=== PATIENT | female | born 1975 | race Caucasian/White ===

== ENCOUNTER 2022-09-29 07:55 | Outpatient (CLI) | payer OTHER, SELFPAY | END 2022-09-29 07:56 | disposition home or self-care (01) | LOC: NFLDREF 09-30 08:45 | PROVIDERS: PCP Physician Assistant Medical; Referring Provider Physician Assistant Medical; Visit Provider Physician Assistant Medical | DX: N95.9 Unspecified menopausal and perimenopausal disorder (principal); R53.83 Other fatigue; E53.8 Deficiency of other specified B group vitamins; Z13.6 Encounter for screening for cardiovascular disorders; Z13.9 Encounter for screening, unspecified | CPT/HCPCS: 80053; 80061; 82306; 82607; 83001; 84443 ==

== ENCOUNTER 2022-12-21 14:05 | Outpatient (CLI) | payer OTHER, SELFPAY | END 2022-12-21 14:06 | disposition home or self-care (01) | LOC: FRMREF 14:05 | PROVIDERS: PCP Physician Assistant Medical; Visit Provider Dermatology | DX: R21 Rash and other nonspecific skin eruption (principal); D68.59 Other primary thrombophilia; R79.89 Other specified abnormal findings of blood chemistry | CPT/HCPCS: 86235 ==

== ENCOUNTER 2023-01-17 13:40 | Outpatient (CLI) | payer OTHER, SELFPAY ==
--- NOTE | 2023-01-17 14:40 | CRLHL7_ITS ---
For Patients: As a result of the Century Cures Act, medical imaging exams and procedure reports are released immediately into your electronic medical record. You may view this report before your referring provider. If you have questions, please contact your health care provider. BILATERAL SCREENING MAMMOGRAM WITH COMPUTER-AIDED DETECTION AND TOMOSYNTHESIS TECHNIQUE: CC and MLO views were obtained. These mammographic images have been obtained using full-field digital technique. These mammographic images were interpreted with the benefit of computer-aided detection. Breast Tomosynthesis was used in this interpretation. COMPARISON FILM: 06/02/21. FINDINGS: The breasts are almost entirely fatty IMPRESSION: There is no radiographic evidence for malignancy. ASSESSMENT: BI-RADS Category 1: Negative RECOMMENDATION: Routine screening mammogram in 1 year. A lay language report of this examination will be provided to the patient. Ismael Koch M.D. Diagnostic Radiologist [email or web address] CHRISTIANO/Dictated by: Ismael Koch MD @ 01/18/2023 12:00:00 PM (Electronically Signed)
== END 2023-01-17 13:41 | disposition home or self-care (01) ==
PROVIDERS: PCP Physician Assistant Medical; Visit Provider Physician Assistant Medical
DX: Z12.31 Encounter for screening mammogram for malignant neoplasm of breast (principal)
CPT/HCPCS: 77063; 77067

== ENCOUNTER 2023-02-19 16:15 | Outpatient (RCR) | payer OTHER, SELFPAY | END 2023-06-19 23:59 | disposition home or self-care (01) | PROVIDERS: PCP Physician Assistant Medical; Visit Provider Family Medicine | DX: M54.2 Cervicalgia (principal); R29.3 Abnormal posture; M54.10 Radiculopathy, site unspecified; R29.898 Other symptoms and signs involving the musculoskeletal system; Z74.09 Other reduced mobility; Z51.89 Encounter for other specified aftercare | CPT/HCPCS: 97110; 97140; 97162 ==

== ENCOUNTER 2023-02-28 06:11 | Day surgery (SDC) | payer OTHER, SELFPAY ==
[2023-02-28] VITALS (8 sets, daily range): BP systolic 136–165; BP diastolic 74–99; PULSE 76–103; RESP 16; TEMP 36.4–36.9; O2SAT 96–98; BMI 42.5
--- NOTE | 2023-02-28 07:26 | W.PM.H&PU ---
History & Physical Update History & Physical Update H&P Reviewed and patient assessed: The following changes are noted below H&P Updates: History, physical exam, and electrodiagnostic studies consistent with right carpal tunnel syndrome. Previously discussed diagnosis and conservative as well as surgical treatment options. After discussion, patient has elected to proceed with surgery consisting of open right carpal tunnel release. Risks of surgery to include but not limited to infection, neurovascular injury, persistent numbness and tingling, and michell-incisional pain were discussed with patient today and all questions were answered. We will schedule surgery at patient's convenience.
--- NOTE | 2023-02-28 07:27 | PM.ORPRC ---
Procedure Note Date of procedure: 02/28/23 Procedure: PREOPERATIVE DIAGNOSIS: 1. Right carpal tunnel syndrome POSTOPERATIVE DIAGNOSIS: 1. Right carpal tunnel syndrome PROCEDURE: 1. Right open carpal tunnel release SURGEON: Ant Huang MD. SUPERVISOR ORDER TAKERS: ALETA Yin. An anatomic pathology assistant was critical for this case to aid in patient positioning, tissue retraction, limb manipulation/positioning, and closure. ANESTHESIA: Local anesthetic IMPLANTS: None TOURNIQUET: 10 minutes at 250 mmHg EBL: 2 mL COMPLICATIONS: None INDICATIONS: The patient is a pleasant 47-year-old female with history of right hand numbness and tingling secondary to carpal tunnel syndrome. Symptoms were not improving with conservative treatment, and patient elected to proceed with surgical intervention consisting of right carpal tunnel release. Prior to surgery, the risks and benefits of the procedure were discussed with patient, all questions were answered, and informed consent was obtained. DESCRIPTION OF PROCEDURE: Patient was seen preoperatively and operative site was marked. Patient was then brought to the operating room and placed in the supine position on the OR table. The subcutaneous tissues overlying the right carpal tunnel were injected with a combination of 1% lidocaine and 0.25% bupivacaine. A tourniquet was placed on the patient's right arm, and right upper extremity was prepped and draped in usual sterile fashion. A surgical time-out was performed confirming patient name, procedure, and location. Operative extremity was then elevated and exsanguinated with an Esmarch, and tourniquet was inflated to 250 mmHg. A skin incision measuring approximately 3-4 cm was made in line with the ring finger extending from the distal wrist flexion crease to Jensen's cardinal line. Blunt dissection was used to dissect through subcutaneous tissues and palmar fascia. Transverse carpal ligament was identified and was sharply incised proximally with care taken to protect the underlying median nerve. The transverse carpal ligament was then sharply divided along its ulnar border using tenotomy scissors and a chipewwa blade with care taken to protect the underlying median nerve. Once the transverse carpal ligament was divided, the antebrachial fascia was released proximally. The wound was then irrigated with normal saline, and the tourniquet was released. Total tourniquet time was 10 minutes. Hemostasis was achieved with bipolar electrocautery. The skin incision was closed with 4-0 nylon horizontal mattress sutures, and a sterile dressing was applied. Patient was then transferred to the recovery room in stable condition. POSTOPERATIVE PLAN: 1. Patient will be discharged to home day of surgery. 2. They were given instructions for wound care and finger range of motion exercises. 3. Return to the clinic for follow-up evaluation in 10-14 days for wound check and suture removal.
[2023-02-28] MEDS: LIDOCAINE 1% MDV 5 ML INJECTION (07:30)
[2023-02-28] MEDS: BUPIVACAINE 0.25% 30 ML 5 ML INJECTION (07:30)
[2023-02-28] MEDS: LIDOCAINE 1 % PF 30 ML INJECTION (07:50)
[2023-02-28] MEDS: BACITRACIN OINTMENT BULK TUBE 1 APPLIC TOPICAL (08:00)
== END 2023-02-28 08:20 | disposition home or self-care (01) ==
PROVIDERS: PCP Physician Assistant Medical; Visit Provider Orthopaedic Surgery
PROC: (CPT 64721; principal; 2023-02-28 07:30)
DX: G56.01 Carpal tunnel syndrome, right upper limb (principal)
CPT/HCPCS: 64721; J0665; J2001

== ENCOUNTER 2023-07-12 08:13 | Outpatient (CLI) | payer OTHER, SELFPAY ==
--- NOTE | 2023-07-12 08:45 | MM_ITS ---
Patient: MICHELLE SANDOVAL Facility:?[facility] Patient ID:?[id number] Site Patient ID:?[id number]. Site :?[id number] Study:?XRay-Breast Bilateral 3D W/CAD-07/12/2023 9:26:45 AM Ordering Physician:Juan Manuel Final Report: DIGITAL DIAGNOSTIC BILATERAL MAMMOGRAM USING TOMOSYNTHESIS AND COMPUTER-AIDED DETECTION LEFT BREAST ULTRASOUND CLINICAL HISTORY: LEFT breast lump. COMPARISON: 01/17/2023, 05/23/2021. TECHNIQUE: Digital BILATERAL mammogram in four projections. Tomosynthesis and CAD utilized. Real-time ultrasound imaging of LEFT breast with imaging documentation. BREAST COMPOSITION: There are areas of scattered fibroglandular density. FINDINGS: 3D CC/MLO BILATERAL mammogram images submitted. No suspicious masses or architectural distortion. No suspicious calcifications or adenopathy. Targeted LEFT breast ultrasound performed in the area of concern at 12 o`clock 8 cm from the nipple. In this location, there is a simple circumscribed cyst measuring 4 x 8 x 6 millimeters. IMPRESSION: Benign simple cyst LEFT breast 12 o`clock 8 cm from the nipple measuring 8 millimeters. No suspicious findings. RECOMMENDATIONS: Annual BILATERAL screening mammography. Results and recommendations discussed with the patient. BI-RADS Category 2: Benign A lay language report of this examination will be provided to the patient. Dictated by: Ismael Koch MD @07/12/2023 9:42:22 AM jj/Dictated by: Ismael Koch MD @ 07/12/2023 12:07:00 PM Signed by:?Ismael Koch MD @07/12/2023 12:58:24 PM (Electronic Signature)
--- NOTE | 2023-07-12 09:15 | US_ITS ---
Patient: MICHELLE SANDOVAL Facility:?[facility] Patient ID:?[id number] Site Patient ID:?[id number]. Site :?[id number] Study:?US-Breast Left LT BREAST LMT / DR. KENT TO READ-07/12/2023 9:27:26 AM Ordering Physician:?WILLIE MARIE CNP Final Report: PLEASE SEE DIGITAL DIAGNOSTIC BILATERAL MAMMOGRAM PERFORMED SAME DAY CRL:rommel carney/Dictated by: Ismael Kent MD @ 07/12/2023 9:42:00 AM Signed by:?Ismael Kent MD @07/12/2023 12:58:26 PM (Electronic Signature)
== END 2023-07-12 08:14 | disposition home or self-care (01) ==
LOC: MAMMO 08:14
PROVIDERS: PCP Physician Assistant Medical; Visit Provider Registered Nurse
DX: N63.20 Unspecified lump in the left breast, unspecified quadrant (principal); N60.02 Solitary cyst of left breast
CPT/HCPCS: 76642; 77066; G0279

== ENCOUNTER 2023-10-02 04:38 | Emergency (ER) | payer OTHER, SELFPAY ==
[2023-10-02 04:45] VITALS: BP 196/103; PULSE 99; RESP 16; TEMP 36.7; O2SAT 97; BMI 43.1
--- NOTE | 2023-10-02 05:07 | CRLHL7_ITS ---
For Patients: As a result of the Cures Act, medical imaging exams and procedure reports are released immediately into your electronic medical record. You may view this report before your referring provider. If you have questions, please contact your health care provider. INDICATION: Palpitations. COMPARISON: None available. TECHNIQUE: 2 views. FINDINGS: Medical Devices: None. Lung Volumes: Adequate inspiration. No significant atelectasis. Lungs: Clear lungs. Pleura and Pleural spaces: No significant pleural effusion. No pneumothorax. Mediastinum: Normal cardiomediastinal silhouette. Bony Thorax and Soft Tissues: No significant incidental findings. IMPRESSION: No imaging findings pertinent to the indication for the exam or significant unrelated findings. Dictated by Sundar Murphy MD @ 10/02/2023 6:00:36 AM (Electronically Signed)
--- NOTE | 2023-10-02 05:20 | ED_ITS ---
HPI - General Adult General Chief complaint: Unspecified Complaint, Adult Stated complaint: shaky,dizzy, increased heart rate Time Seen by Provider: 10/02/23 04:52 Source: patient Mode of arrival: ambulatory Limitations: no limitations History of Present Illness HPI narrative: 47-year-old female presents the emergency department with 1 hour of feeling just generally unwell. Her dog woke her up in the middle of the night presumably to go to the bathroom. When she got up she felt like her heart was racing and she was dizzy. There were no stroke-like symptoms. She was wearing a fitness tracking watch brian stated that her heart rate can range from 117-125 minute just stayed there. She does not believe it had an arrhythmia monitor built in. She felt a little dizzy but otherwise there was no chest pain, significant shortness of breath or other abnormality. She woke her so that he can take the dog out while she continue to monitor her heart rate. Ultimately, she decided to come into the ED. She says that her symptoms did get quite a bit better even before they left for the ED and did completely resolve on route. She denies a prior history of AFib or other arrhythmia. She has no personal history of DVT or PE but states that she had recurrent miscarriages and had a coagulopathy worked up and was ultimately diagnosed with MTHFR as well as a protein C deficiency. It sounds like she used Lovenox during but did not continue this . It sounds as though she had previously been recommended to take low-dose aspirin daily but at her physical last year, her physician and she decided that the efficacy may not be bear and she reports that she has not been regularly using the aspirin. No falls, trauma or injury, no fever. No illness exposures. No recent travel. Does have a history of asthma but states that that has been under good control and she has not been recently using her inhaler. She states she has had panic attacks in the past and wonders if this is what was going on today but she says she has never felt dizzy with those. 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 ROS denies any other systemic symptoms like stroke-like symptoms, chest pain, palpitations, shortness of breath, GI changes, skin changes, otherwise negative times 12 systems. Past medical history benign per her report otherwise. No prior stress test. Protein C deficiency but not anticoagulated. History of asthma but very intermittent and sounds like it is viral triggered. No recent surgery or pertinent travel. No current prescription medications. Nonsmoker. Related Data Home Medications ?Medication ?Instructions ?Recorded ?Confirmed aspirin 81 mg chewable tablet 1 tab PO DAILY 10/16/22 06/28/23 Previous Rx's ?Medication ?Instructions ?Recorded albuterol sulfate 90 mcg/actuation 2 puff inhalation Q6H PRN 10/06/22 aerosol inhaler shortness of breath or wheezing #8.5 grams fluticasone 250 mcg-salmeterol 50 1 inh inhalation BID #60 ea 05/10/23 mcg/dose blistr powdr for inhalation (Advair Diskus) nebulizer accessories #1 ea 05/10/23 nebulizers #1 ea 05/10/23 Allergies Allergy/AdvReac Type Severity Reaction Status Date / Time gentamicin Allergy Intermediate swelling Verified 06/28/23 14:28 and redness azithromycin AdvReac Severe nausea Verified 06/28/23 14:28 [From Zithromax Z-Castro] [facility] Medical History Rash ?R21 - Rash and other nonspecific skin eruption (ICD-10) Right ear pain ?H92.01 - Otalgia, right ear (ICD-10) History of protein C deficiency ?Z86.2 - Personal history of diseases of the blood and blood-forming organs and certain disorders involving the immune mechanism (ICD-10) History of blood coagulation disorder ?Z86.2 - Personal history of diseases of the blood and blood-forming organs and certain disorders involving the immune mechanism (ICD-10) Surgical History H/O dilation and curettage ?Z98.890 - Other specified postprocedural states (ICD-10) S/P tendon repair ?Z98.890 - Other specified postprocedural states (ICD-10) RTS (radial tunnel syndrome) ?G56.30 - Lesion of radial nerve, unspecified upper limb (ICD-10) History of hysterectomy ?Z90.710 - Acquired absence of both cervix and uterus (ICD-10) History of section ?Z98.891 - History of uterine scar from previous surgery (ICD-10) Family History Family/Other Cancer Grandfather Heart disease Grandmother Heart disease Sister Lupus erythematosus Mental disorder Rheumatoid arthritis Mother Mental disorder Rheumatoid arthritis Diabetes Father Rheumatoid arthritis Social History Narrative: Has 2 children Non-smoker What is your current living situation?: I presently have a place to live Problems where you live: no known problems In the past 12 months, utilities in danger of being shut off: no In past 12 months, lack of transportation kept you from medical appts, meetings, work, or getting things needed for daily living: no In the past 12 mos, have been you worried that your food would run out before you had money to buy more?: never true In the past 12 mos, the food you bought just didn't last and you didn't have money to buy more?: never true Smoking Status: Never smoker Second hand tobacco smoke exposure: No How often do you have a drink containing alcohol: never AUDIT-C Alcohol total score: 0 Non-prescribed substance use: denies use How often does anyone, including family, friends and others, physically hurt you : never How often does anyone, including family, friends and others, insult or talk down to you: never How often does anyone, including family, friends and others, threaten you with harm: never How often does anyone, including family, friends and others, scream or curse at you: never Little interest or pleasure in doing things: not at all Feeling down, depressed, or hopeless: not at all Exam Const: Vital Signs, click to edit/add: Vital Signs - 24 hr 10/02/23 04:45 10/02/23 05:23 Temperature 98.1 F Pulse Rate 86 Pulse Rate [Pulse Oximeter] 99 Respiratory Rate 16 20 Blood Pressure 155/90 H Blood Pressure [Ri ght Upper Arm] 196/103 H Pulse Oximetry 97 96 Oxygen Delivery Me thod Room Air Documenting provider has reviewed patient's vital signs: yes Common normals: alert General appearance: comfortable and well kempt HENMT: Common normals: normocephalic, TM's normal bilaterally and oropharynx normal Head and scalp: normocephalic Face and sinus: normal facial exam Tympanic membrane: TM's normal bilaterally Eye: Common normals: conjunctivae normal General eye: normal appearance of both eyes Conjunctiva: conjunctiva(e) normal Neck & C-Spine: Common normals: full ROM, no lymphadenopathy and thyroid normal Thyroid: thyroid normal Resp: Common normals: normal respiratory effort, no use of accessory muscles and clear to auscultation bilaterally Effort & inspection: able to speak in complete sentences Auscultation: clear to auscultation bilaterally Cardio: Common normals: regular rate, regular rhythm, S1 normal heart sound, S2 normal heart sound and no murmurs Rate: regular rate Rhythm: regular rhythm Heart sounds: S1 normal and S2 normal GI: Common normals: Normal to inspection, nondistended, normoactive bowel sounds present, soft to palpation, non-tender, no hepatosplenomegaly and no masses Palpation: soft and no hepatosplenomegaly Extremity: Other: No edema on right, trace pitting edema on left. No palpable cords, negative Homans sign Neuro: Sensorium/orientation: alert Speech: speech normal Gait (neuro): normal gait Motor exam: no movement abnormalities noted Psych: Appearance: well kempt Attitude: engaged Activity/motor behavior: appropriate eye contact Insight: insight good Judgement: judgment good Skin: Common normals: no rashes or lesions noted General skin exam: no rashes or lesions noted Course Course ED Course: 47-year-old female with history of coagulopathy presenting with episode of dizziness and racing heart, seemingly now resolved. Differential diagnosis including arrhythmia especially something like AFib, panic attack, acute coronary syndrome, pulmonary embolism, viral illness, among others. Will obtain chest x-ray, swab for COVID, D-dimer, typical cardiac labs as well as TSH, CBC. Vitals are stable at the time and heart rate is high 80s to low 90s during my exam. If D-dimer is positive, would recommend CT PA. If workup is negative, would still recommend that she have an outpatient Holter monitor to look for AFib due to multiple risk factors for underlying sleep apnea due to obesity. Reevaluation(s) Time of Reevaluation #1: 06:07 Reevaluation #1: Discussed normal x-ray and remainder normal findings with patient. She has not had any further episodes well in the ED today. Differential diagnosis including panic attack, run of non dangerous tachycardia or my bigger concern is that she had a run of AFib that she just has not had a recurrent episode of here in the ED for me to catch. I discussed this with her. She does have risk factors for sleep apnea and obesity. I think it would be in her best interest to have a Holter monitor and her primary care provider could consider an echo also if she feels this is necessary. Encouraged patient to continue wearing her fitness tracker. We did discuss ones that have arrhythmia monitors built-in it does not seem as though hers has this capability. It does not sound as though she needs 1 of those necessarily. Alarm symptoms were reviewed that would warrant ED pre sentation. Patient will make a follow-up appointment with her provider in the next couple of weeks to discuss Holter monitor and additional testing. She will keep watch of her symptoms in the interim. Any worsening, back to the emergency department. Labs and x-ray today are all reassuring. Vital Signs Vital signs: Initial Vital Signs Temperature 98.1 F 10/02/23 04:45 Temperature Source Temporal Artery Scan 10/02/23 04:45 Pulse Rate 99 10/02/23 04:45 Respiratory Rate 16 10/02/23 04:45 Blood Pressure 196/103 H 10/02/23 04:45 Blood Pressure Mean 134 H 10/02/23 04:45 Blood Pressure Position Sitting 10/02/23 04:45 Pulse Oximetry 97 10/02/23 04:45 Oxygen Delivery Method Room Air 10/02/23 04:45 Vital Signs Temperature 98.1 F 10/02/23 04:45 Pulse Rate 99 10/02/23 04:45 Respiratory Rate 16 10/02/23 04:45 Blood Pressure 196/103 H 10/02/23 04:45 Pulse Oximetry 97 10/02/23 04:45 Oxygen Delivery Method Room Air 10/02/23 04:45 Temperature 98.1 F 10/02/23 04:45 Pulse Rate 86 10/02/23 05:23 Respiratory Rate 20 10/02/23 05:23 Blood Pressure 155/90 H 10/02/23 05:23 Pulse Oximetry 96 10/02/23 05:23 Oxygen Delivery Method Room Air 10/02/23 04:45 Medical Decision Making Lab Data Lab results reviewed: Yes I reviewed the patient's lab results Lab results narrative: Labs very reassuring including a negative D-dimer Labs: Lab Results 10/02/23 10/02/23 Range/Units 05:08 05:15 WBC 7.53 (4.50-11.00) K/uL RBC 4.71 (4.00-5.20) m/uL Hgb 13.7 (12.0-16.0) gm/dL Hct 41.1 (33.0-51.0) % MCV 87 (80-100) fL MCH 29 (26-34) pg MCHC 33 (32-36) gm/dL RDW Coeff of Megha 12.3 (11.5-15.5) % Plt Count 292 (140-440) K/uL Neut % (Auto) 79.7 H (42.0-72.0) % Lymph % (Auto) 13.9 L (20-44) % [place] % (Auto) 4.9 (0.0-11.0) % Eos % (Auto) 0.9 (0.0-7.0) % Baso % (Auto) 0.5 (0.0-3.0) % Neut # (Auto) 6.00 (1.7-7.0) K/uL Lymph # (Auto) 1.00 (0.90-2.90) K/uL [place] # (Auto) 0.40 (0.00-0.90) K/UL Eos # (Auto) 0.07 (0.00-0.50) K/uL Baso # (Auto) 0.04 (0.00-0.30) K/uL Abs Immat Gran (auto) 0.01 (0.00-0.30) K/uL Imm/Tot Granulo (auto) 0.1 % D-Dimer Quant (PE/DVT) 0.33 (0.00-0.50) ug/ml Sodium 137 (135-149) mmol/L Potassium 3.8 (3.6-5.1) mmol/L Chloride 108 (96-114) mmol/L Carbon Dioxide 21 (20-32) mmol/L Anion Gap 8 (7-15) mEq/L BUN 14 (5-24) mg/dL Creatinine 0.7 (0.5-1.5) mg/dL Estimated Creat Clear 98.69 Estimated GFR 109 ml/min Glucose 141 H (60-115) mg/dL Calcium 8.9 (8.4-10.6) mg/dL Total Bilirubin 0.4 (0.1-1.5) mg/dL AST 19 (12-35) U/L ALT 23 (4-35) U/L Alkaline Phosphatase 75 (40-150) U/L C-Reactive Protein 1.0 (0.5-1.0) mg/dL NT-Pro-B Natriuret Pep 24 pg/mL Total Protein 6.9 (6.0-8.3) g/dL Albumin 4.3 (3.3-5.0) g/dL SARS-CoV-2 (PCR) Negative SARS-CoV-2 (Negative) Influenza Type A (PCR) Negative PCR FLU A (Negative) Influenza Type B (PCR) Negative PCR FLU B (Negative) RSV (PCR) Negative PCR RSV (Negative) POC Troponin I 0.00 L (0.01-0.04) ng/ml Imaging Data Chest x-ray: Attestation: I have reviewed the pertinent imaging results. My impression: Normal chest x-ray Radiologist's impression: IMPRESSION: No imaging findings pertinent to the indication for the exam or significant unrelated findings. ECG Data Attestation: I personally reviewed and interpreted this ECG as follows: Prior ECG tracings: not available for review Interpretation: Normal sinus rhythm, resting rate of 96. QT interval is a little prolonged, corrected is 490. No ischemia signs, no significant ST or T-wave abnormalities. Normal axis. Discharge Plan Discharge Clinical Impression: Rapid heart rate Patient Disposition: Home w/ Parent or Adult Condition: Improved Instructions: Tachycardia (ED) Additional Instructions: As we discussed, your elevated heart rate could be from multiple reasons. You could be coming down with a viral illness. There were no signs of anemia or infection or significant thyroid disease on your blood work. There were no signs of blood clot which is reassuring. I am concerned that you could have had an episode of atrial fibrillation. This is a fairly common abnormal heart rhythm in women, especially those that may have risk factors for sleep apnea. It is important to find out because atrial fibrillation can increase the risk of stroke. Would like for you to continue taking your aspirin for your protein C deficiency as we discussed. Would also like for you to make a follow-up appoint with her primary care provider within the next couple of weeks to discuss having a Holter monitor placed. Your provider will decide if they want an echo also. If you have significant worsening of symptoms, chest pain or severe shortness of breath, he should come back to the emergency department in the interim. No restrictions on exercise or activity at this time. Please keep wearing her fitness tracker and keep a good diary of any returning symptoms. Activity Level: No Restrictions Discharge Diet: Regular Prescriptions: No Action albuterol sulfate 90 mcg/actuation HFA aerosol inhaler 2 puff inhalation Q6H PRN (Reason: shortness of breath or wheezing) Qty: 8.5 5RF aspirin 81 mg tablet,chewable 1 tab PO DAILY (DME) nebulizer accessories Kit See Rx Instructions .Route Qty: 1 0RF Rx Instructions: As directed (DME) nebulizers Misc See Rx Instructions .Route Qty: 1 0RF Rx Instructions: As directed fluticasone propion-salmeterol [Advair Diskus] 250-50 mcg/dose blister with device 1 inh inhalation BID Qty: 60 12RF Follow Up/Referrals: Gabi Morales PA-C [Primary Care Provider] - Stand Alone Forms: [employer]! Info Instructions
[2023-10-02 05:22] LABS: Basophils Absolute Auto 0.04 K/uL (0.00-0.30); Basophils Percent Auto 0.5 % (0.0-3.0); Eosinophils Absolute Auto 0.07 K/uL (0.00-0.50); Eosinophils Percent Auto 0.9 % (0.0-7.0); Hematocrit 41.1 % (33.0-51.0); Hemoglobin* 13.7 gm/dL (12.0-16.0); Immature Granulocytes Abs Auto 0.01 K/uL (0.00-0.30); Immature Granulocytes Pct Auto 0.1 %; Lymphocytes Percent Auto 13.9 % (20-44); Mean Corpuscular HGB Conc 33 gm/dL (32-36); Mean Corpuscular Hemoglobin 29 pg (26-34); Mean Corpuscular Volume 87 fL (80-100); Monocytes Percent Auto 4.9 % (0.0-11.0); Neutrophils Percent Auto 79.7 % (42.0-72.0); Platelet Count* 292 K/uL (140-440); RDW Coefficient of Variation % 12.3 % (11.5-15.5); Red Blood Count 4.71 m/uL (4.00-5.20); White Blood Count* 7.53 K/uL (4.50-11.00)
[2023-10-02 05:23] VITALS: BP 155/90; PULSE 86; RESP 20; O2SAT 96
[2023-10-02 05:24] VITALS: PULSE 84; O2SAT 96
[2023-10-02 05:26] LABS: Slide Review Reflex No
[2023-10-02 05:30] VITALS: PULSE 89; O2SAT 95
[2023-10-02 05:35] LABS: Albumin* 4.3 g/dL (3.3-5.0); Chloride* 108 mmol/L (96-114); Potassium* 3.8 mmol/L (3.6-5.1); Sodium* 137 mmol/L (135-149)
[2023-10-02 05:37] LABS: Creatinine* 0.7 mg/dL (0.5-1.5); Est. Creatinine Clearance* 98.69; Estimated Glomerular Filt Rate 109 ml/min
[2023-10-02 05:38] LABS: Alanine Aminotransferase* 23 U/L (4-35); Alkaline Phosphatase* 75 U/L (40-150); Anion Gap 8 mEq/L (7-15); Aspartate Amino Transferase* 19 U/L (12-35); Bilirubin Total* 0.4 mg/dL (0.1-1.5); Blood Urea Nitrogen* 14 mg/dL (5-24); Carbon Dioxide* 21 mmol/L (20-32); Glucose* 141 mg/dL (60-115); Total Protein* 6.9 g/dL (6.0-8.3)
[2023-10-02 05:39] LABS: Calcium* 8.9 mg/dL (8.4-10.6); D Dimer Quantitative* 0.33 ug/ml (0.00-0.50)
[2023-10-02 05:45] VITALS: PULSE 84; RESP 16; O2SAT 95
[2023-10-02 05:48] LABS: NT Pro B Type NatriureticPept* 24 pg/mL
[2023-10-02 05:59] LABS: PCR FLU A Negative PCR FLU A (Negative); PCR FLU B Negative PCR FLU B (Negative); PCR RSV Negative PCR RSV (Negative); SARS PCR* Negative SARS-CoV-2 (Negative)
== END 2023-10-02 06:17 | disposition home or self-care (01) ==
PROVIDERS: Emergency Provider Family Medicine; PCP Physician Assistant Medical
DX: R00.2 Palpitations (principal)
CPT/HCPCS: 36415; 71046; 80053; 83880; 84443; 84484; 85025; 85379; 86140; 87631; 93005; 99284; 99285

== ENCOUNTER 2023-10-26 07:48 | Day surgery (SDC) | payer OTHER, SELFPAY ==
[2023-10-26] VITALS (7 sets, daily range): BP systolic 147–166; BP diastolic 87–97; PULSE 75–99; RESP 16; TEMP 36.6–36.7; O2SAT 95–99; BMI 43.8
--- NOTE | 2023-10-26 08:02 | P.ORPRC_ITS ---
Procedure Note Date of procedure: 10/26/23 Procedure: PREOPERATIVE DIAGNOSIS: 1. Right thumb trigger digit POSTOPERATIVE DIAGNOSIS: 1. Right thumb trigger digit PROCEDURE: 1. Right thumb trigger (A1 kristin) release SURGEON: Ant Huang MD. ELECTRIC VEHICLE ELECTRICIAN: TERESA Yin. An safety assistant was critical for this case to aid in patient positioning, tissue retraction, limb manipulation/positioning, and closure. ANESTHESIA: Local anesthetic IMPLANTS: None TOURNIQUET: 5 min at 200 mmHg COMPLICATIONS: None evident INDICATIONS: The patient is a pleasant 47-year-old female who has history of right thumb pain and triggering. Symptoms did not improve with conservative management. Patient subsequently elected to proceed with surgical intervention consisting of right thumb A1 kristin release. Prior to surgery risks and benefits were discussed with patient all questions were answered informed consent was obtained. DESCRIPTION OF PROCEDURE: Patient was seen preoperatively and operative site was marked. Patient was then brought to the operating room placed in supine position on the OR table. A tourniquet was placed on the patient's right arm and right upper extremity was prepped and draped in usual sterile fashion. A surgical time-out was performed confirming patient name, procedure, and location. The subcutaneous tissues overlying the right thumb A1 kristin were injected with combination of 1% lidocaine and 0.25% bupivacaine. Operative extremity was then elevated and exsanguinated with an Esmarch, and tourniquet was inflated to 200 mmHg. A skin incision measuring approximately 1 cm was made longitudinally over the A1 kristin of the right thumb. Blunt dissection was used to dissect through subcutaneous tissues. The underlying flexor tendons and A1 kristin were identified and retractors were used to protect the neurovascular structures. The A1 kristin was then released using a tenotomy scissor. After complete release of the A1 kristin, the patient was asked to flex and extend their fingers, and no active triggering was noted. Tourniquet was then released and hemostasis was achieved with bipolar electrocautery. Total tourniquet time was 5 minutes. Wound was the irrigated with normal saline. Skin incision was closed with 4-0 nylon horizontal mattress sutures, and a sterile dressing was applied. Patient was then transferred to the recovery room in stable condition. POSTOPERATIVE PLAN: 1. Patient will be discharged to home day of surgery. 2. They were given instructions for wound care and finger range of motion exercises. 3. Return to the clinic for follow-up evaluation in - days for wound check and suture removal.
--- NOTE | 2023-10-26 08:02 | W.PM.H&PU ---
History & Physical Update History & Physical Update H&P Reviewed and patient assessed: No changes noted
[2023-10-26] MEDS: LIDOCAINE 1 % PF 30 ML INJECTION (09:26)
[2023-10-26] MEDS: BUPIVACAINE 0.5% 30 ML INJECTION (09:28)
[2023-10-26] MEDS: BACITRACIN OINTMENT BULK TUBE 1 APPLIC TOPICAL (09:42)
== END 2023-10-26 10:06 | disposition home or self-care (01) ==
LOC: OR 07:49
PROVIDERS: PCP Physician Assistant Medical; Visit Provider Orthopaedic Surgery
PROC: (CPT 26055; principal; 2023-10-26 09:15)
DX: M65.311 Trigger thumb, right thumb (principal)
CPT/HCPCS: 26055; J0665; J2001

== ENCOUNTER 2023-11-13 08:20 | Outpatient (CLI) | payer OTHER, SELFPAY | END 2023-11-13 08:21 | disposition home or self-care (01) | LOC: NFLDREF 11-17 09:27 | PROVIDERS: PCP Physician Assistant Medical; Referring Provider Physician Assistant Medical; Visit Provider Physician Assistant Medical | DX: E53.8 Deficiency of other specified B group vitamins (principal); I10 Essential (primary) hypertension; R73.03 Prediabetes; E55.9 Vitamin D deficiency, unspecified | CPT/HCPCS: 80061; 82306; 82607 ==

== ENCOUNTER 2024-10-01 11:14 | Outpatient (CLI) | payer OTHER, SELFPAY ==
--- NOTE | 2024-10-01 11:30 | CRLHL7_ITS ---
For Patients: As a result of the Cures Act, medical imaging exams and procedure reports are released immediately into your electronic medical record. You may view this report before your referring provider. If you have questions, please contact your health care provider. INDICATION: BILATERAL SCREENING MAMMOGRAM, ASYMPOTMATIC 48 Y/O FEMALE COMPARISON: 07/12/2023, 01/17/2023, 05/23/2021 TECHNIQUE: Digital mammogram in CC and MLO projections including computer-aided detection (CAD) and tomosynthesis. BREAST COMPOSITION: The breasts are almost entirely fatty. FINDINGS: No suspicious findings. ASSESSMENT: BI-RADS 2 Benign RECOMMENDATION: Annual screening mammogram. A lay language report of this examination will be provided to the patient. Dictated by: Edie Jo MD @ 10/02/2024 13:24:58 (Electronically Signed)
== END 2024-10-01 11:15 | disposition home or self-care (01) ==
LOC: MAMMO 11:15
PROVIDERS: PCP Physician Assistant Medical; Visit Provider Physician Assistant Medical
DX: Z12.31 Encounter for screening mammogram for malignant neoplasm of breast (principal)
CPT/HCPCS: 77063; 77067

== ENCOUNTER 2024-12-15 07:26 | Outpatient (CLI) | payer OTHER, SELFPAY | END 2024-12-15 07:27 | disposition home or self-care (01) | LOC: NFLDREF 18:44 | PROVIDERS: PCP Physician Assistant Medical; Referring Provider Physician Assistant Medical; Visit Provider Physician Assistant Medical | DX: Z00.00 Encounter for general adult medical examination without abnormal findings (principal); R73.03 Prediabetes; R79.89 Other specified abnormal findings of blood chemistry | CPT/HCPCS: 80053; 80061; 82306; 84443 ==